=== PATIENT | male | born 1995 | race Caucasian/White ===

== ENCOUNTER 2018-07-04 13:42 | Inpatient (IN) | payer BC ==
[2018-07-04] MEDS ORDERED: KETOROLAC 30 MG/ML 1 ML VIAL IVP STA (13:57)
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
[2018-07-04 14:20] LABS: Basophils % (A) 0 %; Eosinophils # (A) 0.1 k/uL (0-0.7); Eosinophils % (A) 1 %; HGB 14.4 gm/dL (13.0-17.5); Lymphocytes # (A) 1.3 k/uL (1.0-4.8); Lymphocytes % (A) 10 %; MCH 30.7 pg (25.0-35.0); MCHC 34.3 g/dL (31.0-37.0); MCV 89.5 fL (80.0-100.0); Mean Platelet Volume 6.9; Monocytes # (A) 0.4 k/uL (0-1.0); Monocytes % (A) 3 %; Neutrophils # (A) 10.6 k/uL (1.3-7.7); Neutrophils % (A) 85 %; Platelet Count 262 k/uL (150-450); RBC 4.69 m/uL (4.30-5.90); RDW 11.7 % (11.5-15.5); WBC 12.6 k/uL (3.8-10.6)
[2018-07-04] MEDS ORDERED: KETAMINE 10 MG/ML 20 ML VIAL IV ONE (14:23)
[2018-07-04 14:27] LABS: ALT 26 U/L (21-72); AST 27 U/L (17-59); Albumin 4.7 g/dL (3.5-5.0); Alcohol <10 mg/dL; Alkaline Phosphatase 42 U/L (38-126); Amylase 63 U/L (30-110); Anion Gap 10 mmol/L; Blood Urea Nitrogen 18 mg/dL (9-20); Calcium 9.7 mg/dL (8.4-10.2); Carbon Dioxide 26 mmol/L (22-30); Chloride 104 mmol/L (98-107); Glucose 100 mg/dL (74-99); Lipase 103 U/L (23-300); Potassium 4.7 mmol/L (3.5-5.1); Sodium 140 mmol/L (137-145); Total Bilirubin 0.7 mg/dL (0.2-1.3); Total Protein 7.7 g/dL (6.3-8.2)
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
[2018-07-04 14:30] LABS: INR 1.2 (<1.2); Partial Thromboplastin Time 23.5 sec (22.0-30.0); Prothrombin Time 11.4 sec (9.0-12.0)
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
[2018-07-04 14:51] LABS: Creatine Kinase 259 U/L (55-170)
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
[2018-07-04 15:02] LABS: Creatine Kinase MB 1.7 ng/mL (0.0-2.4); Troponin I <0.012 ng/mL (0.000-0.034)
--- NOTE | 2018-07-04 15:13 | XR ---
EXAMINATION TYPE: XR ankle limited RT DATE OF EXAM: 07/04/2018 HISTORY: Pain TECHNIQUE: Pedis postreduction. Frontal, lateral images of the right ankle are obtained. COMPARISON: Earlier in the day. FINDINGS: Overlying cast material does obscure fine bony detail. Previously described distal fibular diaphyseal fracture is again noted with improved displacement however displacement does persist of ap proximately 7.4 mm. Medial malleolar fracture also demonstrates improved displacement which is curren tly estimated at 6 mm. Continued instability is noted about the ankle mortise. IMPRESSION: Previously described fractures are redemonstrated. Displacement at fracture sites persist s although is improved.
[2018-07-04] MEDS ORDERED: NALOXONE 0.4 MG/ML 1 ML VIAL IV PRN ×2 (15:54→19:42)
[2018-07-04] MEDS ORDERED: DIPH,PERTUS(ACELL)TETVAC-LF 0.5 ML VIAL IM ONE (16:01)
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
[2018-07-04] MEDS ORDERED: LACTATED RINGERS 1,000 ML IV ONE ×2 (16:41→17:39)
[2018-07-04] MEDS ORDERED: ePHEDrine SULFATE/0.9% NACL/PF 50 MG/5 ML SYRINGE IV ONE (16:50)
[2018-07-04] MEDS ORDERED: fentaNYL (PF) 50 MCG/ML 2 ML AMP ONE (16:50)
[2018-07-04] MEDS ORDERED: PHENYLEPHRINE-0.9% NACL SYG 1 MG/10 ML SYRINGE ONE (16:50)
[2018-07-04] MEDS ORDERED: LIDOCAINE 1% INJ 10MG/ML (20 ML MDV) ONE (16:50)
[2018-07-04] MEDS ORDERED: HYDROmorphone (PF) 1 MG/ML ONE (16:50)
[2018-07-04] MEDS ORDERED: ROCURONIUM BROMIDE 10 MG/ML 10 ML VIAL IV ONE (16:50)
[2018-07-04] MEDS ORDERED: PROPOFOL 10 MG/ML 20 ML VIAL IV ONE (16:50)
[2018-07-04] MEDS ORDERED: ONDANSETRON 4 MG/2 ML VIAL ONE (16:50)
[2018-07-04] MEDS ORDERED: GLYCOPYRROLATE 0.2 MG/ML 2 ML VIAL ONE (16:50)
[2018-07-04] MEDS ORDERED: SUCCINYLCHOLINE CHLORIDE 100 MG/5 ML SYR IV ONE (16:50)
[2018-07-04] MEDS ORDERED: MIDAZOLAM 2 MG/2 ML VIAL ONE (16:50)
[2018-07-04] MEDS ORDERED: DEXAMETHASONE SOD PHOS (MDV) 100 MG/10 ML VIAL ONE (16:50)
[2018-07-04] MEDS ORDERED: NEOSTIGMINE 1 MG/ML 10 ML VIAL ONE (16:50)
[2018-07-04] MEDS ORDERED: SODIUM CHLORIDE 0.9% 50 ML with ceFAZolin 2,000 MG IV ONE ×2 (16:55)
[2018-07-04] MEDS ORDERED: ONDANSETRON 4 MG/2 ML VIAL IVP PRN (19:42)
[2018-07-04] MEDS ORDERED: HYDROcodone/APAP 5-325MG 1 EACH TAB PO PRN (19:42)
[2018-07-04] MEDS ORDERED: HYDROmorphone 1 MG/ML 1 ML SYRINGE IVP PRN (19:42)
[2018-07-04] MEDS ORDERED: MAGNESIUM HYDROXIDE 2,400 MG/10 ML CUP PO PRN (19:42)
[2018-07-04] MEDS: HYDROcodone/APAP 5-325MG 1 EACH TAB PO PRN (20:37)
[2018-07-04] MEDS ORDERED: SENNOSIDES-DOCUSATE SODIUM 1 EACH TAB PO SCH (21:00)
[2018-07-04 22:22] VITALS: BMI 21.6
[2018-07-04] MEDS: HYDROmorphone 1 MG/ML 1 ML SYRINGE IVP PRN (22:29)
[2018-07-04] MEDS: SODIUM CHLORIDE 0.9% 1,000 ML IV SCH (23:31)
[2018-07-05] MEDS: ceFAZolin IN SWFI 2 GM/20 ML SYRINGE IVP SCH ×2 (00:36→08:14)
[2018-07-05] MEDS: HYDROcodone/APAP 5-325MG 1 EACH TAB PO PRN ×2 (01:37→07:32)
[2018-07-05] MEDS: HYDROmorphone 1 MG/ML 1 ML SYRINGE IVP PRN ×2 (03:07→05:39)
[2018-07-05] MEDS: SODIUM CHLORIDE 0.9% 1,000 ML IV SCH (05:57)
[2018-07-05 07:43] VITALS: BP 106/68; PULSE 62; RESP 16; TEMP 97.8
[2018-07-05] MEDS ORDERED: ENOXAPARIN 40 MG/0.4 ML SYRINGE SQ SCH (09:00)
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
[2018-07-05] MEDS ORDERED: HYDROcodone/APAP 5-325MG 1 EACH TAB PO PRN ×2 (10:17)
[2018-07-05] MEDS: CYCLOBENZAPRINE 5 MG TAB PO PRN ×2 (10:32→14:15)
--- NOTE | 2018-07-05 21:25 | XR ---
EXAMINATION TYPE: XR ankle limited RT, FL guidance operating room DATE OF EXAM: 07/04/2018 COMPARISON: NONE HISTORY: 22-year-old male right ankle ORIF FINDINGS: Imaging during placement of a lateral screw and fixation of the fibula, screw fixation the medial mal leolus, and transsyndesmotic fixation as well. FLUOROSCOPY Fluoroscopy time of 2 minutes 2 seconds was used during right ankle ORIF. 5 image/s document/s the p rocedure. IMPRESSION: Right ankle ORIF as above.
== END 2018-07-05 14:47 | disposition home or self-care (01) | DRG 494 ==
LOC: EC 13:42 → 4SSUR 15:54
PROVIDERS: ADMIT Orthopaedic Surgery; ATTEND Orthopaedic Surgery
PROC: 0QSG04Z Reposition Right Tibia with Internal Fixation Device, Open Approach (ICD-10-PCS; 2018-07-04)
PROC: 0SSF04Z Reposition Right Ankle Joint with Internal Fixation Device, Open Approach (ICD-10-PCS; 2018-07-04)
PROC: 0QSJXZZ Reposition Right Fibula, External Approach (ICD-10-PCS; 2018-07-04)
PROC: 0QSGXZZ Reposition Right Tibia, External Approach (ICD-10-PCS; 2018-07-04)
PROC: 0QSJ04Z Reposition Right Fibula with Internal Fixation Device, Open Approach (ICD-10-PCS; principal; 2018-07-04 16:30)
DX: S82.841A Displaced bimalleolar fracture of right lower leg, initial encounter for closed fracture (principal); S62.002A Unspecified fracture of navicular [scaphoid] bone of left wrist, initial encounter for closed fracture; F32.9 Major depressive disorder, single episode, unspecified; S00.81XA Abrasion of other part of head, initial encounter; Z87.891 Personal history of nicotine dependence; V86.99XA Unspecified occupant of other special all-terrain or other off-road motor vehicle injured in nontraffic accident, initial encounter; Y92.9 Unspecified place or not applicable
CPT/HCPCS: 27810; 29125; 36415; 71045; 72170; 80053; 80320; 82150; 82550; 82553; 83690; 84484; 85025; 85610; 85730; 86850; 86900; 86901; 96365; 96366; 96375; 99152; 99291

== ENCOUNTER → 2023-07-29 | Outpatient (CLI) | payer BC ==
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
== END | disposition home or self-care (01) ==
LOC: RADMRIMAIN 06:04
PROVIDERS: ATTEND Internal Medicine Gastroenterology
DX: K85.90 Acute pancreatitis without necrosis or infection, unspecified (principal); K86.89 Other specified diseases of pancreas
CPT/HCPCS: 74183; A9585